=== PATIENT | male | born 1970 | race Two or more races ===

== ENCOUNTER 2020-11-01 14:39 | Outpatient (CLI) | payer OTHER | END 2020-11-01 14:41 | disposition HB | LOC: RAD 14:39 | DX: M77.32 Calcaneal spur, left foot (principal); M25.561 Pain in right knee; M25.562 Pain in left knee; M25.572 Pain in left ankle and joints of left foot ==

== ENCOUNTER → 2024-03-31 | Emergency (ER) | payer OTHER ==
[~2024-03-31] VITALS: Ht 167.6 cm; Wt 68.9 kg
[~2024-03-31] MED LIST: DUI500 PO; KETOROLAC TROMETHAMINE 60 MG VIAL IM ONE
[2024-03-31 13:35] LABS: HEMATOCRIT 38.4 % (39.0-48.0); HEMOGLOBIN 12.7 g/dL (13-16.00); MEAN CELL VOLUME 93.6 fL (80.0-100.00); MEAN CORPUSCULAR HEMOGLOBIN 31.1 pg (27.00-32.0); MEAN CORPUSCULAR HGB CONC 33.2 g/dl (32.0-36.0); PLATELET COUNT 229 K/uL (150-450); RED CELL DISTRIBUTION WIDTH 13.8 % (11.5-14.5)
== END | disposition home or self-care (01) ==
LOC: ER 11:57
PROVIDERS: General Practice
DX: M94.0 Chondrocostal junction syndrome [Tietze] (principal); Z20.822 Contact with and (suspected) exposure to COVID-19